=== PATIENT | female | born 1975 | race Caucasian/White ===

== ENCOUNTER 2017-06-10 13:30 | Emergency (ER) | payer OTHER ==
--- NOTE | 2017-06-10 13:58 | ED.PDOC ---
History of Present Illness - General Chief Complaint: Abdominal Pain Stated Complaint: abdominal pain Time Seen by Provider: 06/10/17 13:49 Information Source: patient Exam Limitations: no limitations - History of Present Illness Initial Comments: Shameka Santoyo 42 y/o female stated that she was diagnosed with diverticulitis in May 11 at [facility] after she presented there with abdominal pain Ct abdomen showed diverticulitis she was treated with antibiotics cipro/ flagyl outpatient 2 x and continue to have constant stabbing pain since onset.Seen Dr. Echavarria GI specialist today called up here to repeat another scan on her abdomen for possible worsening of diverticulitis.No nausea/vomiting but with diarrhea and blood in stool .Able to eat but sometimes pain worsens so small amounts taken.Had previous colonoscopy in the past in [place]. Abdominal Pain Onset Location: LUQ, LLQ Pain Radiation: no radiation Quality: stabbing Timing/Duration: other - 30 days Improving Factors: nothing Worsening Factors: eating Associated Symptoms: other - see hpi Review of Systems - Review of Systems Constitutional: States: no symptoms reported EENTM: States: no symptoms reported Respiratory: States: no symptoms reported Cardiology: States: see HPI Gastrointestinal/Abdominal: States: see HPI Genitourinary: States: no symptoms reported Musculoskeletal: States: no symptoms reported All other Systems: Reviewed and Negative, No Change from Baseline Past Medical History (General) - Patient Medical History Hx Cancer: Yes - thyroid s/p thyroidectomy Hx Other PMH: Yes - hypothyroidism,diverticulosis endometriosis Surgical History: other - lumbar laminectomy,breast reduction,thyroidectomy/ parathyroidectomy,TAHBSO Family Medical History - Family History Father Hx Family Cancer: Yes - prostate Mother Family History: No Known Physical Exam - Physical Exam General Appearance: Alert, Comfortable, No apparent distress Eyes, Ears, Nose, Throat Exam: normal ENT inspection, TMs normal Neck: non-tender, full range of motion, supple Respiratory: lungs clear, no respiratory distress Cardiovascular/Chest: normal peripheral pulses, regular rate, rhythm, no gallop , no murmur Peripheral Pulses: No deficit Gastrointestinal/Abdominal: non tender, tenderness - left side abdomen Back Exam: no CVA tenderness, no vertebral tenderness Extremity: no pedal edema, no calf tenderness Neurologic: alert, oriented x 3 Skin Exam: normal color, warm/dry Progress - Progress Progress: 06/10/17 16:43 06/10/17 14:04 IV Care:Saline Lock per Protoc QSHIFT 06/10/17 14:06 Hold Metformin x 48Hrs [id number] CLOSTRIDIUM DIFFICILE AG/TOXIN Urgent Laboratory Results - last 24 hr 06/10/17 06/10/17 06/10/17 14:04 14:04 14:15 WBC 7.1 RBC 5.07 Hgb 14.4 Hct 44.1 MCV 87.0 MCH 28.4 MCHC 32.7 L RDW 14.5 Plt Count 217 MPV 9.0 Absolute Neuts (auto) 3.50 Absolute Lymphs (auto) 2.80 Absolute Monos (auto) 0.60 Absolute Eos (auto) 0.10 Absolute Basos (auto) 0.10 Neutrophils % 49.7 Lymphocytes % 38.9 Monocytes % 9.0 Eosinophils % 1.3 Basophils % 1.1 Sodium 140 Potassium 3.1 L Chloride 105 Carbon Dioxide 27 Anion Gap 11.1 L BUN < 5 L Creatinine 0.79 BUN/Creatinine Ratio 6.3 L Random Glucose 93 Serum Osmolality 276.4 Lactic Acid 0.9 Calcium 8.9 Total Bilirubin 0.4 AST 18 ALT 17 Alkaline Phosphatase 82 Serum Total Protein 7.5 Albumin 4.4 Globulin 3.1 Albumin/Globulin Ratio 1.4 Urine Color Urine Appearance Urine pH Ur Specific [place] Urine Protein Urine Glucose (UA) Urine Ketones Urine Blood Urine Nitrite Urine Bilirubin Urine Urobilinogen Ur Leukocyte Esterase Urine RBC Urine WBC Ur Epithelial Cells Urine Bacteria 06/10/17 14:27 WBC RBC Hgb Hct MCV MCH MCHC RDW Plt Count MPV Absolute Neuts (auto) Absolute Lymphs (auto) Absolute Monos (auto) Absolute Eos (auto) Absolute Basos (auto) Neutrophils % Lymphocytes % Monocytes % Eosinophils % Basophils % Sodium Potassium Chloride Carbon Dioxide Anion Gap BUN Creatinine BUN/Creatinine Ratio Random Glucose Serum Osmolality Lactic Acid Calcium Total Bilirubin AST ALT Alkaline Phosphatase Serum Total Protein Albumin Globulin Albumin/Globulin Ratio Urine Color Yellow Urine Appearance Clear Urine pH 5.5 Ur Specific [place] 1.010 Urine Protein Negative Urine Glucose (UA) Negative Urine Ketones Negative Urine Blood Trace-intact H Urine Nitrite Negative Urine Bilirubin Negative Urine Urobilinogen 0.2 Ur Leukocyte Esterase Negative Urine RBC 1-3 Urine WBC 0 Ur Epithelial Cells 0 Urine Bacteria 0 - Results/Orders Results/Orders: 06/10/17 14:04 IV Care:Saline Lock per Protoc QSHIFT 06/10/17 14:06 Hold Metformin x 48Hrs [id number] CLOSTRIDIUM DIFFICILE AG/TOXIN Urgent Laboratory Results - last 24 hr 06/10/17 06/10/17 06/10/17 14:04 14:04 14:15 WBC 7.1 RBC 5.07 Hgb 14.4 Hct 44.1 MCV 87.0 MCH 28.4 MCHC 32.7 L RDW 14.5 Plt Count 217 MPV 9.0 Absolute Neuts (auto) 3.50 Absolute Lymphs (auto) 2.80 Absolute Monos (auto) 0.60 Absolute Eos (auto) 0.10 Absolute Basos (auto) 0.10 Neutrophils % 49.7 Lymphocytes % 38.9 Monocytes % 9.0 Eosinophils % 1.3 Basophils % 1.1 Sodium 140 Potassium 3.1 L Chloride 105 Carbon Dioxide 27 Anion Gap 11.1 L BUN < 5 L Creatinine 0.79 BUN/Creatinine Ratio 6.3 L Random Glucose 93 Serum Osmolality 276.4 Lactic Acid 0.9 Calcium 8.9 Total Bilirubin 0.4 AST 18 ALT 17 Alkaline Phosphatase 82 Serum Total Protein 7.5 Albumin 4.4 Globulin 3.1 Albumin/Globulin Ratio 1.4 Urine Color Urine Appearance Urine pH Ur Specific [place] Urine Protein Urine Glucose (UA) Urine Ketones Urine Blood Urine Nitrite Urine Bilirubin Urine Urobilinogen Ur Leukocyte Esterase Urine RBC Urine WBC Ur Epithelial Cells Urine Bacteria 06/10/17 14:27 WBC RBC Hgb Hct MCV MCH MCHC RDW Plt Count MPV Absolute Neuts (auto) Absolute Lymphs (auto) Absolute Monos (auto) Absolute Eos (auto) Absolute Basos (auto) Neutrophils % Lymphocytes % Monocytes % Eosinophils % Basophils % Sodium Potassium Chloride Carbon Dioxide Anion Gap BUN Creatinine BUN/Creatinine Ratio Random Glucose Serum Osmolality Lactic Acid Calcium Total Bilirubin AST ALT Alkaline Phosphatase Serum Total Protein Albumin Globulin Albumin/Globulin Ratio Urine Color Yellow Urine Appearance Clear Urine pH 5.5 Ur Specific [place] 1.010 Urine Protein Negative Urine Glucose (UA) Negative Urine Ketones Negative Urine Blood Trace-intact H Urine Nitrite Negative Urine Bilirubin Negative Urine Urobilinogen 0.2 Ur Leukocyte Esterase Negative Urine RBC 1-3 Urine WBC 0 Ur Epithelial Cells 0 Urine Bacteria 0 - EKG/XRAY/CT CT Ordered: Yes - abd pelvis mild diverticular inflammation Departure - Departure Clinical Impression: Diverticulitis Qualifiers: Diverticulitis site: large intestine Diverticulitis bleeding: without bleeding Diverticulitis complication: without perforation or abscess Qualified Code(s): K57.32 - Diverticulitis of large intestine without perforation or abscess without bleeding Abdominal pain Qualifiers: Abdominal location: left lower quadrant Qualified Code(s): R10.32 - Left lower quadrant pain Time of Disposition: 17:12 Disposition: Discharge to Home or Self Care Condition: Fair Departure Forms: ED Discharge - Pt. Copy, Patient Portal Self Enrollment Instructions: DI for Diverticulitis, Diverticulitis Prescriptions: Promethazine W/Codeine Syr [Phenergan With Codeine Syrup] 10 ml PO TID PRN #200 ud PRN Reason: Pain Home Medications: Ambulatory Orders Promethazine W/Codeine Syr [Phenergan With Codeine Syrup] 10 ml PO TID PRN #200 ud 06/10/17 Additional Instructions: Continue with all home medications and antibiotics until finished;May have soft diet ;avoid greasy ,spicy foods.NEED TO SIGN UP WITH PRIMARY MD;RETURN TO ER NEEDED
[2017-06-10] MEDS ORDERED: PROMETHAZINE HCL INJ 25 MG/ML VIAL IM ONE (14:04)
[2017-06-10] MEDS ORDERED: LACTATED RINGERS 1,000 ML IVS ONE (14:04)
[2017-06-10] MEDS ORDERED: MORPHINE SULFATE INJ 10 MG/ML VIAL IV ONE (14:04)
--- NOTE | 2017-06-10 15:31 | CT ---
EXAM DESCRIPTION: CT ABDOMEN AND PELVIS WITH CONTRAST CLINICAL HISTORY: abdominal pain/diverticulitis r/o abscess COMPARISON: None Available. TECHNIQUE: CT of the abdomen and pelvis are performed during IV bolus administration usual adult dose of nonionic iodinated contrast. No oral contrast was given. FINDINGS: In the lower chest, the lung bases are clear. Heart size is normal. CT abdomen The liver, spleen, pancreas, gallbladder, adrenal glands, stomach and kidneys are normal in appearance. No inflammation around the pancreas. No renal stones or hydronephrosis. No bowel dilatation to suggest obstruction. No free air or free fluid. CT pelvis Appendix appears normal. No inflammation around the cecum or terminal ileum or appendix. Multiple diverticula are seen in the region of the descending colon and sigmoid colon. Tiny area of pericolonic inflammation or strandy fluid may be seen along the proximal sigmoid colon (axial images [id number]) which could indicate mild diverticulitis. These findings could be the sequelae of previous diverticulitis or could be very mild acute inflammatory changes. No significant or drainable fluid collection to suggest an abscess. No wall thickening is seen. No colonic mass. No fistula with the bladder. Bladder and distal ureters are negative for stones. Normal enhancement of pelvic vessels. No inguinal or lower pelvic adenopathy. Uterus and ovaries are not seen, evidently surgically absent. Bone window images are negative for fracture or lytic lesion. Postoperative changes in the lower lumbar spine. Coronal and sagittal reformatted images confirm the findings. IMPRESSION: Diverticulosis of the descending and sigmoid colon with mild pericolonic inflammatory changes in the proximal sigmoid region. See above. This exam was performed according to our departmental dose-optimization program, which includes automated exposure control, adjustment of the mA and/or kV according to patient size and/or use of iterative reconstruction technique. Electronically signed by: Gasper Howell MD 06/10/2017 3:30 PM CDT
[2017-06-11 07:40] VITALS: BP 118/84; TEMP 98.8; O2SAT 98
== END 2017-06-10 17:35 | disposition home or self-care (01) ==
LOC: ER 13:30
DX: K57.32 Diverticulitis of large intestine without perforation or abscess without bleeding (principal); E03.9 Hypothyroidism, unspecified; Z85.850 Personal history of malignant neoplasm of thyroid
CPT/HCPCS: 36415; 74177; 80053; 81001; 83605; 85025; J2270; J2550; J7120